=== PATIENT | male | born 1960 | race Caucasian/White ===

== ENCOUNTER 2018-04-05 18:44 | Observation (INO) | payer BC ==
[~2018-04-05] VITALS: Ht 182.9 cm; Wt 108.0 kg
[~2018-04-05 18:44] MED LIST: AMOX500 PO; ASCO1ER; ASCO1ER PO; ASPI325; ASPI325 PO; ASPI81EC; ATOR80; Advil200 M1 PO; CALGLU500; CARV25 PO; CARV6.25 PO; CEPH500 PO; CHOL10002 PO; CLOP75; CLOP75 PO; DILTIAZEM 24HR120 MG PO; ERGO400 PO; EZET10 PO; FAMO20 PO; FENO145 PO; FENO48; FENO54; FLUO20; FOLI1 PO; FOLI400; GINKO BILOBA; HYDACE10B PO; IRBE150; IRBE150 PO; ISOMON60ER; ISOMON60ER PO; Isosorbide Mono60 MG PO; LISI20 PO; LISI5 PO; LIVALO2 MG PO; LOVAZA; METF500 PO; METF500C PO; METO100ER; METO100ER PO; MULVIT; MULVITA PO; MULVITMIND PO; MULVITMINE PO; NIAC500ER PO; NITR.6SL PO; NITROMIST4.1 GM; Norco 10-325 T1 EACH; Norco 5-325 Ta1 EACH PO; OMEG1CAP30 PO; OMEP20ER; OMEP20ER PO; OXYACE5T PO; OXYACE7.5T; OXYACE7.5T PO; PANT40; PIOG15; PIOG15 PO; PRED20 PO; Pyridium200 MG PO; RANO500T PO; ROSU10TA PO; RXHYDMOR2 PO; SUCR1 PO; TOCO400; TRAM50 PO; TRESIBA FL200 UNIT/1 SC; UBID100; UBID100 PO; VALS80; ZEBUTAL 50-3251 EACH PO; ZONI100 PO
[2018-04-05] MEDS ORDERED: FURO20 PO (19:38)
[2018-04-05] MEDS ORDERED: AMLO10 PO (19:55)
[2018-04-05] MEDS ORDERED: UBID10 PO (19:56)
[2018-04-05 19:57] LABS: BASOPHILS ABSOLUTE AUTO 0.08 K/mm3 (0.00-0.23); BASOPHILS PERCENT AUTO 1 % (0-2); EOSINOPHILS ABSOLUTE AUTO 0.35 K/mm3 (0.00-0.68); EOSINOPHILS PERCENT AUTO 3 % (0-6); Hematocrit 41.4 % (37.0-53.0); Hemoglobin 14.4 g/dL (13.5-17.5); IMMATURE GRAN ABSOLUTE AUTO 0.08 K/mm3 (0.00-0.10); IMMATURE GRAN PERCENT AUTO 1 % (0-1); LYMPHOCYTES ABSOLUTE AUTO 4.75 K/mm3 (0.84-5.20); LYMPHOCYTES PERCENT AUTO 45 % (21-46); MONOCYTES ABSOLUTE AUTO 1.06 K/mm3 (0.16-1.47); MONOCYTES PERCENT AUTO 10 % (4-13); Mean Corpuscular HGB 28.2 pg (26.0-34.0); Mean Corpuscular HGB Conc 34.8 g/dL (31.5-36.5); Mean Corpuscular Volume 81 fL (80-100); Mean Platelet Volume 10.2 fL (9.1-12.4); NEUTROPHILS ABSOLUTE AUTO 4.33 K/mm3 (1.96-9.15); NEUTROPHILS PERCENT AUTO 41 % (41-73); Platelet Count 233 K/mm3 (150-400); RDW Coefficient Variation 12.5 % (11.7-14.2); RDW Standard Deviation 36.9 fL (35.1-46.3); White Blood Cell Count 10.65 K/mm3 (4.00-11.30)
[2018-04-05 20:09] LABS: Prothrombin Time Results 10.3 Sec (9.7-11.5)
[2018-04-05 20:20] LABS: Alanine Aminotransfer (ALT/SGP 54 U/L (12-78); Albumin, Blood 4.1 g/dL (3.4-5.0); Albumin/Globulin Ratio 1.1 (0.8-1.8); Alk Phos 48 U/L (50-136); Anion Gap 10 mmol/L (6-16); Aspartate Aminotrans (AST/SGOT 31 U/L (12-37); Bilirubin, Total 0.7 mg/dL (0.1-1.0); Blood Urea Nitrogen 23 mg/dL (8-24); Bun/Creatinine Ratio 19.7 (12.0-20.0); CO2, Blood 22 mmol/L (21-32); Calcium, Blood 9.3 mg/dL (8.5-10.1); Chloride, Blood 102 mmol/L (98-108); Creatinine, Blood 1.17 mg/dL (0.60-1.20); Globulin, Blood 3.8 g/dL (2.2-4.0); Glomerular Filtration Rate >60 (60-); Glucose, Blood 128 mg/dL (70-99); Potassium, Blood 4.2 mmol/L (3.5-5.5); Sodium, Blood 134 mmol/L (136-145); Total Protein, Blood 7.9 g/dL (6.4-8.2); Troponin I <0.015 ng/mL (0.000-0.040)
[2018-04-05 21:21] LABS: D-Dimer, Quantitative 0.4 mg/L FEU (0.00-0.52)
[2018-04-05] MEDS ORDERED: GABA400 PO (22:34)
[2018-04-05] MEDS ORDERED: RANO500T PO (22:35)
[2018-04-05 23:46] LABS: Source, Urine Clean Catch
[2018-04-05 23:52] LABS: Bilirubin, Urine Neg (Neg); Blood, Urine Neg (Neg); Glucose Qualitative, Urine Neg (Neg); Ketones, Urine Neg (Neg); Leukocyte Esterase, Urine Neg (Neg); Nitrite, Urine Neg (Neg); Protein, Urine Neg (Neg); Specific Gravity, Urine 1.015 (1.003-1.022); Urobilinogen, Urine NORM (Normal)
[2018-04-05 23:56] LABS: Appearance, Urine Clear (Clear); Color, Urine Yellow (P-Yellow)
[2018-04-06 04:59] LABS: CPK Creatine Kinase 339 U/L (39-308); Troponin I <0.015 ng/mL (0.000-0.040)
[2018-04-06 05:12] LABS: Creatine Kinase MB 6.5 ng/mL (0.0-3.6); Creatine Kinase MB Index 1.9 (0.0-4.0)
[2018-04-06 16:02] LABS: Hematocrit 41.1 % (37.0-53.0); Hemoglobin 14.2 g/dL (13.5-17.5); Mean Corpuscular HGB 28.1 pg (26.0-34.0); Mean Corpuscular HGB Conc 34.5 g/dL (31.5-36.5); Mean Corpuscular Volume 81 fL (80-100); Mean Platelet Volume 10.1 fL (9.1-12.4); Platelet Count 182 K/mm3 (150-400); RDW Coefficient Variation 12.5 % (11.7-14.2); RDW Standard Deviation 36.8 fL (35.1-46.3); Red Blood Cell Count 5.06 M/mm3 (4.30-5.90); White Blood Cell Count 7.74 K/mm3 (4.00-11.30)
[2018-04-06 16:25] LABS: Alanine Aminotransfer (ALT/SGP 49 U/L (12-78); Albumin, Blood 3.6 g/dL (3.4-5.0); Alk Phos 43 U/L (50-136); Anion Gap 9 mmol/L (6-16); Aspartate Aminotrans (AST/SGOT 30 U/L (12-37); Bilirubin, Total 0.5 mg/dL (0.1-1.0); Blood Urea Nitrogen 14 mg/dL (8-24); Bun/Creatinine Ratio 14.3 (12.0-20.0); CO2, Blood 26 mmol/L (21-32); Calcium, Blood 8.9 mg/dL (8.5-10.1); Chloride, Blood 101 mmol/L (98-108); Creatinine, Blood 0.98 mg/dL (0.60-1.20); Globulin, Blood 3.7 g/dL (2.2-4.0); Glomerular Filtration Rate >60 (60-); Glucose, Blood 138 mg/dL (70-99); Potassium, Blood 4.5 mmol/L (3.5-5.5); Sodium, Blood 136 mmol/L (136-145); Total Protein, Blood 7.3 g/dL (6.4-8.2)
== END 2018-04-07 14:55 | disposition home or self-care (01) ==
LOC: ER 18:44 → PCU 18:45
PROVIDERS: Emergency Medicine; Internal Medicine
DX: R07.9 Chest pain, unspecified (principal); R42 Dizziness and giddiness; I10 Essential (primary) hypertension; E78.5 Hyperlipidemia, unspecified; I25.10 Atherosclerotic heart disease of native coronary artery without angina pectoris; I25.5 Ischemic cardiomyopathy; E11.40 Type 2 diabetes mellitus with diabetic neuropathy, unspecified; Z79.4 Long term (current) use of insulin; Z79.899 Other long term (current) drug therapy; Z79.82 Long term (current) use of aspirin; Z95.1 Presence of aortocoronary bypass graft; Z79.02 Long term (current) use of antithrombotics/antiplatelets
CPT/HCPCS: 36415; 70450; 71046; 80053; 81003; 82550; 82553; 82947; 83880; 84484; 85025; 85027; 85347; 85379; 85610; 85730; 93005; 93010; 93459; 93571; 93880; 94762; 99152; 99153; 99285-25; C1760; C1769; G0378; J1200; J1644; J2250; J3010; J7030; Q9967

== ENCOUNTER 2018-10-28 20:34 | Emergency (ER) | payer BC ==
[~2018-10-28] VITALS: Ht 182.9 cm; Wt 111.1 kg
[~2018-10-28 20:34] MED LIST changes: +AMLO10 PO; +FURO20 PO; +GABA400 PO; +UBID10 PO
[2018-10-28] MEDS ORDERED: Percocet 5-3251 EACH PO (22:41)
[2018-10-28] MEDS ORDERED: Robaxin500 MG PO (22:41)
== END 2018-10-28 22:46 | disposition home or self-care (01) ==
LOC: ER 20:34
DX: M54.12 Radiculopathy, cervical region (principal); Z88.1 Allergy status to other antibiotic agents; Z88.8 Allergy status to other drugs, medicaments and biological substances; Z79.899 Other long term (current) drug therapy; Z79.4 Long term (current) use of insulin; Z79.82 Long term (current) use of aspirin; I10 Essential (primary) hypertension; E11.9 Type 2 diabetes mellitus without complications; E78.5 Hyperlipidemia, unspecified; Z87.891 Personal history of nicotine dependence
CPT/HCPCS: 96372; 99282-25; J1170; J1885

== ENCOUNTER → 2020-06-24 | Outpatient (CLI) | payer BC ==
[~2020-06-24] MED LIST changes: +ABAT250V; +AMOCLA875 PO; +Bactrim Ds Tab1 EACH PO; +JARDIANCE10 MG PO; +NITR.4SL SL; +Percocet 5-3251 EACH PO; +REPATHA SU140 MG/1 M SQ; +Robaxin500 MG PO
== END | disposition home or self-care (01) ==
LOC: LAB PR 10:18 → EDBD 10:18
DX: Z01.812 Encounter for preprocedural laboratory examination (principal); Z20.828 Contact with and (suspected) exposure to other viral communicable diseases
CPT/HCPCS: U0003

== ENCOUNTER 2020-06-29 06:58 | Day surgery (SDC) | payer BC ==
[~2020-06-29] VITALS: Ht 180.3 cm; Wt 107.0 kg
[~2020-06-29 06:58] MED LIST changes: -REPATHA SU140 MG/1 M SQ
[2020-06-29] MEDS ORDERED: REPATHA SU140 MG/1 M SQ (07:47)
--- NOTE | 2020-06-29 09:44 | NUR ---
PT BACK TO RECOVERY ROOM VIA BED POST PROCEDURE. DROWSY, BUT EASILY ROUSES TO VERBAL STIMULI. VSS. SPOUSE AT BEDSIDE, CALL LIGHT IN REACH. RIGHT GROIN SITE SOFT, NON-TENDER. TEGADERM IN PLACE WITHOUT BLEEDING OR OOZING AT SITE.
--- NOTE | 2020-06-29 09:51 | NUR ---
PT'S SPOUSE STATES PT TAKES NORCO 10/325 MG AT HOME REGULARLY FOR BACK PAIN AND WOULD LIKE PT TO HAVE A DOSE WHILE LAYING FLAT ON BACK. WHEN PT ASKED ABOUT BACK PAIN, STATES HE DOES HAVE BACK PAIN CURRENTLY, WOULD LIKE A NORCO. DR OLIVARES NOTIFIED, GAVE VERBAL ORDERS FOR NORCO X 1 NOW.
--- NOTE | 2020-06-29 10:44 | NUR ---
PT SLEEPING, RESP EVEN AND NON-LABORED. VSS, CALL LIGHT IN REACH. PT'S REMAINS AT BEDSIDE.
--- NOTE | 2020-06-29 11:33 | NUR ---
PT OUT TO CAR VIA WHEELCHAIR. IV HAS BEEN DC'D, CATH INTACT. PT AND SPOUSE VERBALIZED UNDERSTANDING OF DC INSTRUCTIONS AND FOLLOW UP INFORMATION. RIGHT FEMORAL SITE REMAINS CLEAN, DRY, AND INTACT. PT DENIES DISCOMFORT TO THE AREA.
--- NOTE | 2020-06-29 12:02 | NUR ---
DR OLIVARES AT BEDSIDE SPEAKING WITH PT AND SPOUSE ABOUT PROCEDURE.
--- NOTE | 2020-06-29 12:46 | NUR ---
PT SITTING UP IN BED, RIGHT GROIN SITE REMAINS SOFT AND NON-TENDER WITHOUT BLEEDING. VSS.
== END 2020-06-29 14:00 | disposition home or self-care (01) ==
LOC: MHTC 06:58 → EDBD 07:00 → MHTC 14:00
PROC: B201YZZ Plain Radiography of Multiple Coronary Arteries using Other Contrast (ICD-10-PCS; principal; 2020-06-29)
PROC: 4A023N7 Measurement of Cardiac Sampling and Pressure, Left Heart, Percutaneous Approach (ICD-10-PCS; principal; 2020-06-29)
DX: I25.118 Atherosclerotic heart disease of native coronary artery with other forms of angina pectoris (principal); T82.855A Stenosis of coronary artery stent, initial encounter; Y83.1 Surgical operation with implant of artificial internal device as the cause of abnormal reaction of the patient, or of later complication, without mention of misadventure at the time of the procedure; I25.82 Chronic total occlusion of coronary artery; Z88.8 Allergy status to other drugs, medicaments and biological substances; Z95.1 Presence of aortocoronary bypass graft; E11.9 Type 2 diabetes mellitus without complications; E78.5 Hyperlipidemia, unspecified; Z82.49 Family history of ischemic heart disease and other diseases of the circulatory system; E66.9 Obesity, unspecified; I25.2 Old myocardial infarction; Z79.899 Other long term (current) drug therapy; Z79.82 Long term (current) use of aspirin; Z79.02 Long term (current) use of antithrombotics/antiplatelets; Z79.4 Long term (current) use of insulin; Z87.891 Personal history of nicotine dependence; Z68.33 Body mass index [BMI] 33.0-33.9, adult
CPT/HCPCS: 76937; 85347; 93459; 99152; 99153; A9270-GY; C1760; C1769; C1874; C1887; C1894; C9604; J1644; J2250; J3010; J7030; J7050; Q9967

== ENCOUNTER 2021-01-19 18:18 | Inpatient (IN) | payer BC ==
[~2021-01-19] VITALS: Ht 182.9 cm; Wt 114.7 kg
[~2021-01-19 18:18] MED LIST changes: +REPATHA SU140 MG/1 M SQ
[2021-01-19 18:56] LABS: BASOPHILS ABSOLUTE AUTO 0.06 K/mm3 (0.00-0.23); BASOPHILS PERCENT AUTO 1 % (0-2); EOSINOPHILS ABSOLUTE AUTO 0.23 K/mm3 (0.00-0.68); EOSINOPHILS PERCENT AUTO 3 % (0-6); Hematocrit 38.7 % (37.0-53.0); Hemoglobin 12.9 g/dL (13.5-17.5); IMMATURE GRAN ABSOLUTE AUTO 0.04 K/mm3 (0.00-0.10); IMMATURE GRAN PERCENT AUTO 1 % (0-1); LYMPHOCYTES ABSOLUTE AUTO 2.46 K/mm3 (0.84-5.20); LYMPHOCYTES PERCENT AUTO 37 % (21-46); MONOCYTES ABSOLUTE AUTO 0.85 K/mm3 (0.16-1.47); MONOCYTES PERCENT AUTO 13 % (4-13); Mean Corpuscular HGB Conc 33.3 g/dL (31.5-36.5); Mean Corpuscular Volume 81 fL (80-100); Mean Platelet Volume 10.2 fL (9.1-12.4); NEUTROPHILS ABSOLUTE AUTO 3.04 K/mm3 (1.96-9.15); NEUTROPHILS PERCENT AUTO 46 % (41-73); Platelet Count 198 K/mm3 (150-400); RDW Coefficient Variation 13.4 % (11.7-14.2); RDW Standard Deviation 39.3 fL (35.1-46.3); Red Blood Cell Count 4.77 M/mm3 (4.30-5.90); White Blood Cell Count 6.68 K/mm3 (4.00-11.30)
[2021-01-19 19:16] LABS: Alanine Aminotransfer (ALT/SGP 53 U/L (12-78); Albumin, Blood 3.5 g/dL (3.4-5.0); Albumin/Globulin Ratio 0.9 (0.8-1.8); Alk Phos 52 U/L (50-136); Anion Gap 8 mmol/L (6-16); Aspartate Aminotrans (AST/SGOT 38 U/L (12-37); Bilirubin, Total 0.5 mg/dL (0.1-1.0); Blood Urea Nitrogen 18 mg/dL (8-24); Bun/Creatinine Ratio 21.2 (12.0-20.0); CO2, Blood 23 mmol/L (21-32); Calcium, Blood 9.1 mg/dL (8.5-10.1); Chloride, Blood 107 mmol/L (98-108); Creatinine, Blood 0.85 mg/dL (0.60-1.20); Globulin, Blood 3.8 g/dL (2.2-4.0); Glomerular Filtration Rate >60 (60-); Glucose, Blood 166 mg/dL (70-99); Sodium, Blood 138 mmol/L (136-145); Total Protein, Blood 7.3 g/dL (6.4-8.2); Troponin I <0.015 ng/mL (0.000-0.040)
[2021-01-19] MEDS ORDERED: ASPIR 8181 M1 PO (22:11)
[2021-01-19] MEDS ORDERED: AMLO5 PO (22:12)
[2021-01-19] MEDS ORDERED: HYDACE10B PO (22:15)
[2021-01-19] MEDS ORDERED: TRESIBA FL100 UNIT/2 SC (22:17)
[2021-01-19] MEDS ORDERED: GABA800 PO (22:18)
[2021-01-20 00:04] LABS: Mean Platelet Volume 10.1 fL (9.1-12.4); Platelet Count 187 K/mm3 (150-400)
[2021-01-20 00:20] LABS: International Normalized Ratio 0.98; Prothrombin Time Results 10.6 Sec (9.7-11.5)
[2021-01-20 03:27] LABS: BASOPHILS ABSOLUTE AUTO 0.05 K/mm3 (0.00-0.23); BASOPHILS PERCENT AUTO 1 % (0-2); EOSINOPHILS ABSOLUTE AUTO 0.26 K/mm3 (0.00-0.68); EOSINOPHILS PERCENT AUTO 4 % (0-6); Hematocrit 37.8 % (37.0-53.0); Hemoglobin 12.7 g/dL (13.5-17.5); IMMATURE GRAN ABSOLUTE AUTO 0.04 K/mm3 (0.00-0.10); IMMATURE GRAN PERCENT AUTO 1 % (0-1); LYMPHOCYTES ABSOLUTE AUTO 2.87 K/mm3 (0.84-5.20); LYMPHOCYTES PERCENT AUTO 41 % (21-46); MONOCYTES ABSOLUTE AUTO 0.94 K/mm3 (0.16-1.47); MONOCYTES PERCENT AUTO 14 % (4-13); Mean Corpuscular HGB 26.8 pg (26.0-34.0); Mean Corpuscular HGB Conc 33.6 g/dL (31.5-36.5); Mean Corpuscular Volume 80 fL (80-100); Mean Platelet Volume 10.1 fL (9.1-12.4); NEUTROPHILS PERCENT AUTO 40 % (41-73); Platelet Count 190 K/mm3 (150-400); RDW Coefficient Variation 13.3 % (11.7-14.2); RDW Standard Deviation 38.2 fL (35.1-46.3); Red Blood Cell Count 4.73 M/mm3 (4.30-5.90); White Blood Cell Count 6.96 K/mm3 (4.00-11.30)
[2021-01-20 03:53] LABS: Alanine Aminotransfer (ALT/SGP 58 U/L (12-78); Albumin, Blood 3.4 g/dL (3.4-5.0); Alk Phos 41 U/L (50-136); Anion Gap 5 mmol/L (6-16); Aspartate Aminotrans (AST/SGOT 47 U/L (12-37); Bilirubin, Total 0.6 mg/dL (0.1-1.0); Blood Urea Nitrogen 14 mg/dL (8-24); Bun/Creatinine Ratio 20.1 (12.0-20.0); CO2, Blood 26 mmol/L (21-32); CPK Creatine Kinase 475 U/L (39-308); Calcium, Blood 8.7 mg/dL (8.5-10.1); Chloride, Blood 105 mmol/L (98-108); Globulin, Blood 3.5 g/dL (2.2-4.0); Glomerular Filtration Rate >60 (60-); Glucose, Blood 127 mg/dL (70-99); Potassium, Blood 3.9 mmol/L (3.5-5.5); Sodium, Blood 136 mmol/L (136-145); Total Protein, Blood 6.9 g/dL (6.4-8.2); Troponin I <0.015 ng/mL (0.000-0.040)
[2021-01-20 04:05] LABS: Creatine Kinase MB 12.2 ng/mL (0.0-3.6); Creatine Kinase MB Index 2.6 (0.0-4.0)
[2021-01-20 10:54] LABS: SARS-Cov-2 (COVID-19) PCR, MMC NEGATIVE (NEGATIVE)
--- NOTE | 2021-01-20 11:05 | NUR ---
echocardiogram complete
--- NOTE | 2021-01-20 11:23 | NUR ---
PT TO HC PT TO HC WITH RN'S BY BED. CHART WITH PT.
[2021-01-20 11:45] LABS: CPK Creatine Kinase 376 U/L (39-308); Troponin I <0.015 ng/mL (0.000-0.040)
[2021-01-20 11:59] LABS: Creatine Kinase MB 9.4 ng/mL (0.0-3.6); Creatine Kinase MB Index 2.5 (0.0-4.0)
--- NOTE | 2021-01-20 12:01 | NUR ---
Advance Directive (AD) education cunducted. Patient tells me that he has put off the AD discussion for quite some time but states that his insisted that he get the form and they will go over it when she arrives. I hand patient the AD booklet and explain about the sections in the booklet and about the notary requirements and filing process. Patient voices appreciation for the form. I explain that the staff are available to answer any questions once his arrrives.
--- NOTE | 2021-01-20 17:54 | NUR ---
SHIFT SUMMARY PT ALERT AND ORIENTED X 4. HR STABLE. BP STABLE. PT REPORTS CP THIS AM. MEDICATED PER EMAR. PT TO FOR ANGIO THIS AM, VS STABLE UPON RETURN TO UNIT. NO CP OR PRESSURE REPORTED AFTER PROCEDURE. R FEMORAL SITE WNL. DRESSING C/D/I. PT LIED FLAT FOR 3 HRS POST OP. HOB RAISED 15 DEGREES Q 15 MIN AFTER 3 HR ANJEL. PT TOLERATED WELL. PT REPORTS PAIN IN ABD AND BACK. REPORTS THIS PAIN IS CHRONIC. MEDICATED PER EMAR. PT REPORTS RELIEF. OXYGEN SATURATION MAINTAINED ABOVE 92% ON RA.PT ABLE TO TURN SELF IN BED NEEDED. WILL CONTINUE TO MONITOR UNTIL REPORT GIVEN TO NIGHTSHIFT RN.
--- NOTE | 2021-01-20 20:21 | NUR ---
PATIENT ALERT AND ORIENTATED, AT BEDSIDE, THIS LN TOOK OVER CARE AT 1845, PATIENT R/GROIN SITE DRESSING INTACT NO DRAINAGE NOTED AND HEME STABLE. ALBE TO MAKE NEEDS KNOWN, CALL LIGHT WITHIN REACH AND CALLS APPROPRIATELY.
--- NOTE | 2021-01-20 21:26 | NUR ---
PATIENT C/O R FLANK PAIN 6/10 RADIATING AROUND HIS MID BACK. GAVE 5/325 MG NORCO PO AND ONE HOUR LATER PAIN WAS DOWN TO 4/10 STILL SANDY NOTED, ASKED PATIENT IF HE WOULD LIKE FENTANYL 25 MCG IVP PRN, GAVE MEDICATION AND PAIN IS DOWN TO 1/10, PATIENT IS RESTING IN BED COMFORTABLY. ASKED PATIENT HOW HE MANAGES HIS PAIN AT HOME, PATIENT STATED THAT HE MANAGES IT TAKING 10/325 MG NORCO AT TIMES WHEN THE PAIN IS BAD.
--- NOTE | 2021-01-21 01:31 | NUR ---
PATIENT IS ALERT AND ORIENTATED ABLE TO MAKE NEEDS KNOWN THIS LN TOOK OVER CARE AT 1845 ON 01/20/21, PATIENT HAS CALL LIGHT WITHIN REACH CALL APPROPRIATELY AND IS INDEPENDENT WITH BATHROOM PRIVILAGES WITH GOALS OF DISCHARGING IN THE MORNING.
--- NOTE | 2021-01-21 11:32 | NUR ---
UPDATE CARDIOLOGY SIGNED OFF ON PT CASE. RECOMMENDING FOLLOW UP OUTPATIENT. HOSPITALIST INFORMED.
--- NOTE | 2021-01-21 17:31 | NUR ---
SHIFT SUMMARY SPOKE WITH CARDIOLOGY THIS AM. CARDIOLOGY SIGNING OFF AND RECOMMENDING OUTPATIENT FOLLOW UP. PT ALERT AND ORIENTED X 4. REPORTS CP AT TIMES. MEDICATED PER EMAR. PT REPORTS RELIEF. PT REPORTS EXERTIONAL CP, PHYSICIAN AWARE. R GROIN SITE WNL. DRESSING C/D/I. HR STABLE. BP STABLE. PT ABLE TO TURN SELF IN BED NEEDED. WILL CONTINUE TO MONITOR UNTIL REPORT GIVEN TO NIGHTSHIFT RN.
--- NOTE | 2021-01-22 05:44 | NUR ---
A/O X4. PLEASANT COOPERATIVE. VSS. C/O ONGOING C/P THAT IS "MORE RELIEVED WITH IV PAIN MEDICATION". TEACHING PROVIDED REGARDING PAIN CONTROL WHEN DISCHARGED HOME. NO OTHER COMPLAINTS OR NEEDS AT THIS TIME. CALL LIGHT WITHIN REACH.
--- NOTE | 2021-01-22 18:20 | NUR ---
SHIFT SUMMARY PT ALERT AND ORIENTED X 4. HR STABLE. BP STABLE. PT REPORTS CP AT TIMES. MEDICATED PER EMAR. PHYSICIAN NOTIFIED. PT REPORTS EXERTIONAL CP RATING 04/04. R GROIN SITE WNL. DRESSING C/D/I. PT SBA, ABLE TO TURN SELF IN BED. OXYGEN SATURATION MAINTAINED ABOVE 92% ON RA. WILL CONTINUE TO MONITOR UNTIL REPORT GIVEN TO NIGHTSHIFT RN.
--- NOTE | 2021-01-23 06:23 | NUR ---
chest pain increased w/ exertion continues for pt. denies new or different pain. IV Fentanyl and PO [place] given t/o noc. vss. up independently in room. denies other needs/concerns/questions. call light within reach.
--- NOTE | 2021-01-23 08:44 | NUR ---
AM NOTE PT ALERT AND ORIENTED X 4. VITAL SIGNS STABLE. DR SANTOS AT BEDSIDE THIS AM AND PT REPORTED DESIRE FOR DISCHARGE. PATIENT IS ABLE TO AMBULATE ON OWN. PT REPORTED CHEST PAIN AT REST 3/10. PT REPORTED PAIN FEELS LIKE PRESSURE/SHARP RADIATING DOWN ARM AT TIMES. THIS STUDENT WILL CONTINUE TO MONITOR PAIN AND TREAT PER ORDERS. BED IN LOW/LOCK, CALL LIGHT IN REACH.
--- NOTE | 2021-01-23 14:55 | NUR ---
SHIFT SUMMARY/DISCHARGE TRANSFER NOTE PT REMAINED A&O X 4. VITAL SIGNS STABLE. NO ACUTE CHANGES NOTED. PT LEFT PCU ROOM W/ BELONGINGS AT 1333 VIA WHEELCHAIR AND WAS PICKED UP BY . PATIENT APPEARED STEADY OF FEET AND WAS ABLE TO ENTER VEHICLE ON OWN.
--- NOTE | 2021-01-23 17:52 | NUR ---
THIS RN HAS REVIEWED THE NURSING STUDENTS DOCUMENTATION AND AM IN AGREEMENT. PT REPORTS 6/10 CHEST PAIN THIS AM, MEDICATED WITH FENTNYL IV WITH POSITIVE RESULTS. PT DECIDED HE WANTS TO GO HOME TODAY AND COMPLETED THE STRESS TEST AN OUTPATIENT. VSS. EDUCATED PT ON DISCHARGE SUMMARY, MEDCIATIONS, FOLLOW UP APPOINTMENTS AND GROIN SITE CARE. PT LEFT ROOM VIA WHEELCHAIR AT 1340.
== END 2021-01-23 13:40 | disposition home or self-care (01) | DRG 287 ==
LOC: ER 18:18 → PCU 23:20
PROVIDERS: Internal Medicine Cardiovascular Disease; Physician Assistant; ADMIT Internal Medicine
PROC: B2111ZZ Fluoroscopy of Multiple Coronary Arteries using Low Osmolar Contrast (ICD-10-PCS; principal; 2021-01-20)
PROC: B2181ZZ Fluoroscopy of Left Internal Mammary Bypass Graft using Low Osmolar Contrast (ICD-10-PCS; 2021-01-20)
DX: I25.110 Atherosclerotic heart disease of native coronary artery with unstable angina pectoris (principal); Z20.822 Contact with and (suspected) exposure to COVID-19; I10 Essential (primary) hypertension; E11.40 Type 2 diabetes mellitus with diabetic neuropathy, unspecified; K21.9 Gastro-esophageal reflux disease without esophagitis; E78.5 Hyperlipidemia, unspecified; Z86.718 Personal history of other venous thrombosis and embolism; Z95.1 Presence of aortocoronary bypass graft; Z88.8 Allergy status to other drugs, medicaments and biological substances; Z79.4 Long term (current) use of insulin; Z79.01 Long term (current) use of anticoagulants; Z79.82 Long term (current) use of aspirin; Z79.899 Other long term (current) drug therapy
CPT/HCPCS: 36415; 71046; 76937; 80053; 82550; 82553; 82947; 83880; 84484; 85025; 85049; 85610; 85730; 93005; 93010; 93306; 93455; 96372; 96374; 96375; 99152; 99153; 99285-25; A9270; C1760; C1769; C1894; G0378; J1644; J2250; J2270; J3010; J7030; Q9967; U0004

== ENCOUNTER 2021-04-17 02:25 | Day surgery (SDC) | payer OTHER ==
[~2021-04-17 02:25] MED LIST changes: +AMLO5 PO; +ASPIR 8181 M1 PO; +GABA800 PO; +TRESIBA FL100 UNIT/2 SC
== END 2021-04-17 23:41 | disposition home or self-care (01) ==
LOC: WOUND 02:25
DX: T81.31XA Disruption of external operation (surgical) wound, not elsewhere classified, initial encounter (principal); S31.000A Unspecified open wound of lower back and pelvis without penetration into retroperitoneum, initial encounter; I25.10 Atherosclerotic heart disease of native coronary artery without angina pectoris; M48.062 Spinal stenosis, lumbar region with neurogenic claudication; M51.16 Intervertebral disc disorders with radiculopathy, lumbar region; E11.622 Type 2 diabetes mellitus with other skin ulcer; Y83.8 Other surgical procedures as the cause of abnormal reaction of the patient, or of later complication, without mention of misadventure at the time of the procedure; Z87.891 Personal history of nicotine dependence; Z88.8 Allergy status to other drugs, medicaments and biological substances; Z79.4 Long term (current) use of insulin; Z98.890 Other specified postprocedural states
CPT/HCPCS: A9270; G0463

== ENCOUNTER 2021-04-24 02:52 | Day surgery (SDC) | payer OTHER | END 2021-04-24 23:09 | disposition home or self-care (01) | LOC: WOUND 02:52 | DX: T81.31XA Disruption of external operation (surgical) wound, not elsewhere classified, initial encounter (principal); S31.000A Unspecified open wound of lower back and pelvis without penetration into retroperitoneum, initial encounter; M48.062 Spinal stenosis, lumbar region with neurogenic claudication; M51.16 Intervertebral disc disorders with radiculopathy, lumbar region; E11.622 Type 2 diabetes mellitus with other skin ulcer; I25.10 Atherosclerotic heart disease of native coronary artery without angina pectoris; Y83.8 Other surgical procedures as the cause of abnormal reaction of the patient, or of later complication, without mention of misadventure at the time of the procedure; Z79.4 Long term (current) use of insulin | CPT/HCPCS: A9270; G0463 ==

== ENCOUNTER 2021-05-02 02:37 | Day surgery (SDC) | payer OTHER | END 2021-05-02 22:59 | disposition home or self-care (01) | LOC: WOUND 02:37 | DX: T81.31XA Disruption of external operation (surgical) wound, not elsewhere classified, initial encounter (principal); Y83.8 Other surgical procedures as the cause of abnormal reaction of the patient, or of later complication, without mention of misadventure at the time of the procedure; M48.062 Spinal stenosis, lumbar region with neurogenic claudication; M51.16 Intervertebral disc disorders with radiculopathy, lumbar region; E11.622 Type 2 diabetes mellitus with other skin ulcer; I25.10 Atherosclerotic heart disease of native coronary artery without angina pectoris; Z88.8 Allergy status to other drugs, medicaments and biological substances | CPT/HCPCS: A9270 ==

== ENCOUNTER 2021-05-09 01:49 | Day surgery (SDC) | payer OTHER | END 2021-05-09 22:44 | disposition home or self-care (01) | LOC: WOUND 01:49 | DX: T81.31XA Disruption of external operation (surgical) wound, not elsewhere classified, initial encounter (principal); M51.16 Intervertebral disc disorders with radiculopathy, lumbar region; I25.10 Atherosclerotic heart disease of native coronary artery without angina pectoris; E11.622 Type 2 diabetes mellitus with other skin ulcer; Z79.4 Long term (current) use of insulin; Y83.8 Other surgical procedures as the cause of abnormal reaction of the patient, or of later complication, without mention of misadventure at the time of the procedure | CPT/HCPCS: A9270; G0463 ==

== ENCOUNTER 2021-05-16 03:50 | Day surgery (SDC) | payer OTHER | END 2021-05-16 23:43 | disposition home or self-care (01) | LOC: WOUND 03:50 | DX: T81.31XA Disruption of external operation (surgical) wound, not elsewhere classified, initial encounter (principal); S31.000A Unspecified open wound of lower back and pelvis without penetration into retroperitoneum, initial encounter; X58.XXXA Exposure to other specified factors, initial encounter; M48.062 Spinal stenosis, lumbar region with neurogenic claudication; M51.16 Intervertebral disc disorders with radiculopathy, lumbar region; E11.622 Type 2 diabetes mellitus with other skin ulcer | CPT/HCPCS: A9270; G0463 ==

== ENCOUNTER 2021-05-23 02:44 | Day surgery (SDC) | payer OTHER | END 2021-05-23 22:42 | disposition home or self-care (01) | LOC: WOUND 02:44 | DX: S31.000A Unspecified open wound of lower back and pelvis without penetration into retroperitoneum, initial encounter (principal); X58.XXXA Exposure to other specified factors, initial encounter; M48.062 Spinal stenosis, lumbar region with neurogenic claudication; M51.16 Intervertebral disc disorders with radiculopathy, lumbar region; E11.622 Type 2 diabetes mellitus with other skin ulcer | CPT/HCPCS: A9270; G0463 ==

== ENCOUNTER 2021-05-30 00:29 | Day surgery (SDC) | payer OTHER | END 2021-05-30 23:25 | disposition home or self-care (01) | LOC: WOUND 00:29 | DX: T81.31XA Disruption of external operation (surgical) wound, not elsewhere classified, initial encounter (principal); M48.062 Spinal stenosis, lumbar region with neurogenic claudication; M51.16 Intervertebral disc disorders with radiculopathy, lumbar region; S31.000A Unspecified open wound of lower back and pelvis without penetration into retroperitoneum, initial encounter; X58.XXXA Exposure to other specified factors, initial encounter; E11.622 Type 2 diabetes mellitus with other skin ulcer; I25.10 Atherosclerotic heart disease of native coronary artery without angina pectoris; Z88.8 Allergy status to other drugs, medicaments and biological substances | CPT/HCPCS: A9270; G0463 ==

== ENCOUNTER 2021-05-31 02:12 | Day surgery (SDC) | payer OTHER | END 2021-05-31 23:04 | disposition home or self-care (01) | LOC: WOUND 02:12 | DX: S31.000D Unspecified open wound of lower back and pelvis without penetration into retroperitoneum, subsequent encounter (principal); X58.XXXD Exposure to other specified factors, subsequent encounter; M48.062 Spinal stenosis, lumbar region with neurogenic claudication; M51.16 Intervertebral disc disorders with radiculopathy, lumbar region; E11.622 Type 2 diabetes mellitus with other skin ulcer | CPT/HCPCS: G0463 ==

== ENCOUNTER 2021-06-02 01:28 | Day surgery (SDC) | payer OTHER | END 2021-06-02 23:45 | disposition home or self-care (01) | LOC: WOUND 01:28 | DX: S31.000A Unspecified open wound of lower back and pelvis without penetration into retroperitoneum, initial encounter (principal); X58.XXXA Exposure to other specified factors, initial encounter; E11.622 Type 2 diabetes mellitus with other skin ulcer; M48.062 Spinal stenosis, lumbar region with neurogenic claudication; M51.16 Intervertebral disc disorders with radiculopathy, lumbar region | CPT/HCPCS: G0463 ==

== ENCOUNTER 2021-06-05 02:53 | Day surgery (SDC) | payer OTHER | END 2021-06-05 22:54 | disposition home or self-care (01) | LOC: WOUND 02:53 | DX: T81.31XA Disruption of external operation (surgical) wound, not elsewhere classified, initial encounter (principal); M48.062 Spinal stenosis, lumbar region with neurogenic claudication; M51.16 Intervertebral disc disorders with radiculopathy, lumbar region; S31.000A Unspecified open wound of lower back and pelvis without penetration into retroperitoneum, initial encounter; X58.XXXA Exposure to other specified factors, initial encounter; E11.622 Type 2 diabetes mellitus with other skin ulcer | CPT/HCPCS: A9270; G0463 ==

== ENCOUNTER 2021-06-07 05:14 | Day surgery (SDC) | payer OTHER | END 2021-06-07 22:47 | disposition home or self-care (01) | LOC: WOUND 05:14 | DX: S31.000A Unspecified open wound of lower back and pelvis without penetration into retroperitoneum, initial encounter (principal); X58.XXXA Exposure to other specified factors, initial encounter; M48.062 Spinal stenosis, lumbar region with neurogenic claudication; M51.16 Intervertebral disc disorders with radiculopathy, lumbar region; E11.622 Type 2 diabetes mellitus with other skin ulcer | CPT/HCPCS: G0463 ==

== ENCOUNTER 2021-06-09 04:13 | Day surgery (SDC) | payer OTHER | END 2021-06-09 23:39 | disposition home or self-care (01) | LOC: WOUND 04:13 | DX: S31.000A Unspecified open wound of lower back and pelvis without penetration into retroperitoneum, initial encounter (principal); X58.XXXA Exposure to other specified factors, initial encounter; E11.622 Type 2 diabetes mellitus with other skin ulcer; M48.062 Spinal stenosis, lumbar region with neurogenic claudication; M51.16 Intervertebral disc disorders with radiculopathy, lumbar region | CPT/HCPCS: G0463 ==

== ENCOUNTER 2021-06-12 03:48 | Day surgery (SDC) | payer OTHER | END 2021-06-12 12:00 | disposition home or self-care (01) | LOC: WOUND 03:48 | DX: T81.31XA Disruption of external operation (surgical) wound, not elsewhere classified, initial encounter (principal); S31.000A Unspecified open wound of lower back and pelvis without penetration into retroperitoneum, initial encounter; X58.XXXA Exposure to other specified factors, initial encounter; M48.062 Spinal stenosis, lumbar region with neurogenic claudication; M51.16 Intervertebral disc disorders with radiculopathy, lumbar region; E11.622 Type 2 diabetes mellitus with other skin ulcer | CPT/HCPCS: A9270; G0463 ==

== ENCOUNTER 2021-06-14 04:33 | Day surgery (SDC) | payer OTHER | END 2021-06-14 23:30 | disposition home or self-care (01) | LOC: WOUND 04:33 | DX: S31.000A Unspecified open wound of lower back and pelvis without penetration into retroperitoneum, initial encounter (principal); X58.XXXA Exposure to other specified factors, initial encounter; M51.16 Intervertebral disc disorders with radiculopathy, lumbar region; M48.062 Spinal stenosis, lumbar region with neurogenic claudication; E11.622 Type 2 diabetes mellitus with other skin ulcer | CPT/HCPCS: G0463 ==

== ENCOUNTER 2021-06-16 03:10 | Day surgery (SDC) | payer OTHER | END 2021-06-16 22:53 | disposition home or self-care (01) | LOC: WOUND 03:10 | DX: S31.000A Unspecified open wound of lower back and pelvis without penetration into retroperitoneum, initial encounter (principal); X58.XXXA Exposure to other specified factors, initial encounter; M48.062 Spinal stenosis, lumbar region with neurogenic claudication; M51.16 Intervertebral disc disorders with radiculopathy, lumbar region; E11.622 Type 2 diabetes mellitus with other skin ulcer | CPT/HCPCS: G0463 ==

== ENCOUNTER 2021-06-19 05:38 | Day surgery (SDC) | payer OTHER | END 2021-06-19 22:50 | disposition home or self-care (01) | LOC: WOUND 05:38 | DX: T81.30XA Disruption of wound, unspecified, initial encounter (principal); S31.000A Unspecified open wound of lower back and pelvis without penetration into retroperitoneum, initial encounter; X58.XXXA Exposure to other specified factors, initial encounter; M48.062 Spinal stenosis, lumbar region with neurogenic claudication; M51.16 Intervertebral disc disorders with radiculopathy, lumbar region; E11.622 Type 2 diabetes mellitus with other skin ulcer | CPT/HCPCS: A9270; G0463 ==

== ENCOUNTER 2021-06-23 05:21 | Day surgery (SDC) | payer OTHER | END 2021-06-23 23:35 | disposition home or self-care (01) | LOC: WOUND 05:21 | DX: S31.000A Unspecified open wound of lower back and pelvis without penetration into retroperitoneum, initial encounter (principal); X58.XXXA Exposure to other specified factors, initial encounter; E11.622 Type 2 diabetes mellitus with other skin ulcer; M48.062 Spinal stenosis, lumbar region with neurogenic claudication; M51.16 Intervertebral disc disorders with radiculopathy, lumbar region | CPT/HCPCS: G0463 ==

== ENCOUNTER 2021-06-26 05:49 | Day surgery (SDC) | payer OTHER | END 2021-06-26 23:12 | disposition home or self-care (01) | LOC: WOUND 05:49 | DX: T81.31XA Disruption of external operation (surgical) wound, not elsewhere classified, initial encounter (principal); M48.062 Spinal stenosis, lumbar region with neurogenic claudication; M51.16 Intervertebral disc disorders with radiculopathy, lumbar region; S31.000A Unspecified open wound of lower back and pelvis without penetration into retroperitoneum, initial encounter; X58.XXXA Exposure to other specified factors, initial encounter; E11.622 Type 2 diabetes mellitus with other skin ulcer; I25.10 Atherosclerotic heart disease of native coronary artery without angina pectoris | CPT/HCPCS: A9270 ==

== ENCOUNTER 2021-06-28 02:23 | Day surgery (SDC) | payer OTHER | END 2021-06-28 12:00 | disposition home or self-care (01) | LOC: WOUND 02:23 | DX: S31.000A Unspecified open wound of lower back and pelvis without penetration into retroperitoneum, initial encounter (principal); X58.XXXA Exposure to other specified factors, initial encounter; E11.622 Type 2 diabetes mellitus with other skin ulcer; M48.062 Spinal stenosis, lumbar region with neurogenic claudication; M54.16 Radiculopathy, lumbar region ==

== ENCOUNTER 2021-07-03 05:27 | Day surgery (SDC) | payer OTHER | END 2021-07-03 23:53 | disposition home or self-care (01) | LOC: WOUND 05:27 | DX: S31.000A Unspecified open wound of lower back and pelvis without penetration into retroperitoneum, initial encounter (principal); X58.XXXA Exposure to other specified factors, initial encounter; E11.622 Type 2 diabetes mellitus with other skin ulcer; M48.062 Spinal stenosis, lumbar region with neurogenic claudication; M51.16 Intervertebral disc disorders with radiculopathy, lumbar region | CPT/HCPCS: G0463 ==

== ENCOUNTER 2021-07-05 04:43 | Day surgery (SDC) | payer OTHER | END 2021-07-05 22:59 | disposition home or self-care (01) | LOC: WOUND 04:43 | DX: S31.000A Unspecified open wound of lower back and pelvis without penetration into retroperitoneum, initial encounter (principal); X58.XXXA Exposure to other specified factors, initial encounter; M48.062 Spinal stenosis, lumbar region with neurogenic claudication; M51.16 Intervertebral disc disorders with radiculopathy, lumbar region; E11.622 Type 2 diabetes mellitus with other skin ulcer | CPT/HCPCS: G0463 ==

== ENCOUNTER 2021-07-07 08:00 | Day surgery (SDC) | payer OTHER | END 2021-07-07 23:59 | disposition home or self-care (01) | LOC: WOUND 08:00 | DX: S31.000A Unspecified open wound of lower back and pelvis without penetration into retroperitoneum, initial encounter (principal); X58.XXXA Exposure to other specified factors, initial encounter; M48.062 Spinal stenosis, lumbar region with neurogenic claudication; M51.16 Intervertebral disc disorders with radiculopathy, lumbar region; E11.622 Type 2 diabetes mellitus with other skin ulcer | CPT/HCPCS: G0463 ==

== ENCOUNTER 2021-07-10 08:00 | Day surgery (SDC) | payer OTHER | END 2021-07-10 23:59 | disposition home or self-care (01) | LOC: WOUND 08:00 | DX: S31.000A Unspecified open wound of lower back and pelvis without penetration into retroperitoneum, initial encounter (principal); X58.XXXA Exposure to other specified factors, initial encounter; M48.062 Spinal stenosis, lumbar region with neurogenic claudication; M51.16 Intervertebral disc disorders with radiculopathy, lumbar region; E11.622 Type 2 diabetes mellitus with other skin ulcer | CPT/HCPCS: G0463 ==

== ENCOUNTER 2021-08-02 00:18 | Day surgery (SDC) | payer OTHER | END 2021-08-02 23:15 | disposition home or self-care (01) | LOC: WOUND 00:18 | DX: T81.31XA Disruption of external operation (surgical) wound, not elsewhere classified, initial encounter (principal); M48.062 Spinal stenosis, lumbar region with neurogenic claudication; M51.16 Intervertebral disc disorders with radiculopathy, lumbar region; S31.000A Unspecified open wound of lower back and pelvis without penetration into retroperitoneum, initial encounter; X58.XXXA Exposure to other specified factors, initial encounter; E11.622 Type 2 diabetes mellitus with other skin ulcer | CPT/HCPCS: G0463 ==

== ENCOUNTER 2021-12-05 15:21 | Emergency (ER) | payer OTHER ==
[~2021-12-05] VITALS: Ht 182.9 cm; Wt 108.9 kg
[2021-12-05 15:48] LABS: BASOPHILS ABSOLUTE AUTO 0.09 K/mm3 (0.00-0.23); BASOPHILS PERCENT AUTO 1 % (0-2); EOSINOPHILS ABSOLUTE AUTO 0.25 K/mm3 (0.00-0.68); EOSINOPHILS PERCENT AUTO 2 % (0-6); Hematocrit 45.9 % (37.0-53.0); Hemoglobin 15.5 g/dL (13.5-17.5); IMMATURE GRAN ABSOLUTE AUTO 0.07 K/mm3 (0.00-0.10); IMMATURE GRAN PERCENT AUTO 1 % (0-1); LYMPHOCYTES ABSOLUTE AUTO 3.65 K/mm3 (0.84-5.20); LYMPHOCYTES PERCENT AUTO 35 % (21-46); MONOCYTES ABSOLUTE AUTO 1.02 K/mm3 (0.16-1.47); MONOCYTES PERCENT AUTO 10 % (4-13); Mean Corpuscular HGB 28.4 pg (26.0-34.0); Mean Corpuscular HGB Conc 33.8 g/dL (31.5-36.5); Mean Corpuscular Volume 84 fL (80-100); NEUTROPHILS ABSOLUTE AUTO 5.24 K/mm3 (1.96-9.15); NEUTROPHILS PERCENT AUTO 51 % (41-73); Platelet Count 291 K/mm3 (150-400); RDW Coefficient Variation 13.3 % (11.7-14.2); RDW Standard Deviation 40.5 fL (35.1-46.3); Red Blood Cell Count 5.45 M/mm3 (4.30-5.90); White Blood Cell Count 10.32 K/mm3 (4.00-11.30)
[2021-12-05 16:07] LABS: Alanine Aminotransfer (ALT/SGP 46 U/L (12-78); Albumin, Blood 4.1 g/dL (3.4-5.0); Albumin/Globulin Ratio 1.1 (0.8-1.8); Alk Phos 64 U/L (50-136); Anion Gap 6 mmol/L (6-16); Aspartate Aminotrans (AST/SGOT 25 U/L (12-37); Bilirubin, Total 0.4 mg/dL (0.1-1.0); Blood Urea Nitrogen 19 mg/dL (8-24); Bun/Creatinine Ratio 17.8 (12.0-20.0); CO2, Blood 27 mmol/L (21-32); Calcium, Blood 9.3 mg/dL (8.5-10.1); Chloride, Blood 106 mmol/L (98-108); Creatinine, Blood 1.07 mg/dL (0.60-1.20); Globulin, Blood 3.7 g/dL (2.2-4.0); Glomerular Filtration Rate >60 (60-); Glucose, Blood 154 mg/dL (70-99); Sodium, Blood 139 mmol/L (136-145); Total Protein, Blood 7.8 g/dL (6.4-8.2)
[2021-12-05 20:13] LABS: Source, Urine Clean Catch
[2021-12-05 20:18] LABS: Appearance, Urine Clear (Clear); Bilirubin, Urine Neg (Neg); Blood, Urine Neg (Neg); Color, Urine Yellow (P-Yellow); Glucose Qualitative, Urine 4+ (Neg); Ketones, Urine Neg (Neg); Leukocyte Esterase, Urine Neg (Neg); Nitrite, Urine Neg (Neg); Protein, Urine Neg (Neg); Specific Gravity, Urine 1.015 (1.003-1.022); Urobilinogen, Urine NORM (Normal)
== END 2021-12-06 22:05 | disposition home or self-care (01) ==
LOC: ER 15:21
PROVIDERS: Physician Assistant
DX: R10.31 Right lower quadrant pain (principal); R30.0 Dysuria; I10 Essential (primary) hypertension; E11.9 Type 2 diabetes mellitus without complications; I25.10 Atherosclerotic heart disease of native coronary artery without angina pectoris; E78.5 Hyperlipidemia, unspecified; Z88.8 Allergy status to other drugs, medicaments and biological substances; Z79.4 Long term (current) use of insulin; Z79.82 Long term (current) use of aspirin; Z79.899 Other long term (current) drug therapy; Z79.84 Long term (current) use of oral hypoglycemic drugs
CPT/HCPCS: 36415; 74177; 80053; 81003; 83690; 85025; 96374; 99284-25; A9270; J1885; Q9967

== ENCOUNTER 2022-06-29 05:25 | Emergency (ER) | payer OTHER ==
[~2022-06-29] VITALS: Ht 182.9 cm; Wt 110.2 kg
[2022-06-29] MEDS ORDERED: LEVFLO500 PO (08:06)
== END 2022-06-29 08:45 | disposition home or self-care (01) ==
LOC: ER 05:25
DX: N45.1 Epididymitis (principal); I25.10 Atherosclerotic heart disease of native coronary artery without angina pectoris; I10 Essential (primary) hypertension; E11.40 Type 2 diabetes mellitus with diabetic neuropathy, unspecified; E78.5 Hyperlipidemia, unspecified; K21.9 Gastro-esophageal reflux disease without esophagitis; Z91.048 Other nonmedicinal substance allergy status; Z88.1 Allergy status to other antibiotic agents; Z79.899 Other long term (current) drug therapy; Z79.4 Long term (current) use of insulin; Z79.82 Long term (current) use of aspirin; Z79.02 Long term (current) use of antithrombotics/antiplatelets; Z79.84 Long term (current) use of oral hypoglycemic drugs
CPT/HCPCS: 76870; A9270; J1885

== ENCOUNTER 2023-06-14 19:51 | Inpatient (IN) | payer OTHER ==
[~2023-06-14] VITALS: Ht 182.9 cm; Wt 106.8 kg
[~2023-06-14 19:51] MED LIST changes: +LEVFLO500 PO
[2023-06-14 21:43] LABS: BASOPHILS ABSOLUTE AUTO 0.07 K/mm3 (0.00-0.23); BASOPHILS PERCENT AUTO 1 % (0-2); EOSINOPHILS ABSOLUTE AUTO 0.16 K/mm3 (0.00-0.68); EOSINOPHILS PERCENT AUTO 2 % (0-6); Hematocrit 46.3 % (37.0-53.0); Hemoglobin 15.8 g/dL (13.5-17.5); IMMATURE GRAN ABSOLUTE AUTO 0.04 K/mm3 (0.00-0.10); IMMATURE GRAN PERCENT AUTO 0 % (0-1); LYMPHOCYTES ABSOLUTE AUTO 1.92 K/mm3 (0.84-5.20); LYMPHOCYTES PERCENT AUTO 18 % (21-46); MONOCYTES ABSOLUTE AUTO 0.84 K/mm3 (0.16-1.47); MONOCYTES PERCENT AUTO 8 % (4-13); Mean Corpuscular HGB 27.5 pg (26.0-34.0); Mean Corpuscular HGB Conc 34.1 g/dL (31.5-36.5); Mean Corpuscular Volume 81 fL (80-100); Mean Platelet Volume 10.5 fL (9.1-12.4); NEUTROPHILS ABSOLUTE AUTO 7.44 K/mm3 (1.96-9.15); NEUTROPHILS PERCENT AUTO 71 % (41-73); Platelet Count 210 K/mm3 (150-400); RDW Coefficient Variation 13.1 % (11.7-14.2); RDW Standard Deviation 37.6 fL (35.1-46.3); Red Blood Cell Count 5.75 M/mm3 (4.30-5.90); White Blood Cell Count 10.47 K/mm3 (4.00-11.30)
[2023-06-14 21:56] LABS: International Normalized Ratio 0.99; Prothrombin Time Results 10.4 Sec (9.7-11.5)
[2023-06-14 22:01] LABS: Albumin, Blood 3.8 g/dL (3.4-5.0); Albumin/Globulin Ratio 1.1 (0.8-1.8); Bilirubin, Total 0.5 mg/dL (0.1-1.0); Bun/Creatinine Ratio 15.3 (12.0-20.0); Calcium, Blood 8.7 mg/dL (8.5-10.1); Creatinine, Blood 0.85 mg/dL (0.60-1.20); Globulin, Blood 3.6 g/dL (2.2-4.0); Potassium, Blood 4.1 mmol/L (3.5-5.5); Total Protein, Blood 7.4 g/dL (6.4-8.2)
[2023-06-14] MEDS ORDERED: BUSP5 PO (23:22)
[2023-06-14] MEDS ORDERED: NITR100CA PO (23:22)
[2023-06-14] MEDS ORDERED: CITALOPRAM HBR10 MG PO (23:23)
[2023-06-14] MEDS ORDERED: HYDACE10B PO (23:35)
[2023-06-14] MEDS ORDERED: REPATHA SU140 MG/1 M SQ (23:39)
[2023-06-15 02:26] VITALS: BP 171/85
--- NOTE | 2023-06-15 06:45 | NUR ---
PT ARRIVED ON FLOOR EARLIER THIS AM AND WAS IN SIGNIFICANT PAIN AFTER TRANSFERRING TO THE UNIT BED. LYLY GREY GAVE PAIN MEDS AND THIS RN GOT SOME PO PAIN MEDS ORDERED FROM DR. WYATT. PT REPORTED FEELING NAUSEOUS AND THIS RN GAVE ZOFRAN AND ANOTHER DOSE OF DILAUDID. PT REPORTS RELIEF WITH MEDICATION INTERVENTIONS. PT/OT ALSO ORDERED D/T PATIENT'S PAIN AND NEED FOR ADL ASSISTANCE.
[2023-06-15 07:11] LABS: BASOPHILS ABSOLUTE AUTO 0.05 K/mm3 (0.00-0.23); BASOPHILS PERCENT AUTO 1 % (0-2); EOSINOPHILS ABSOLUTE AUTO 0.06 K/mm3 (0.00-0.68); EOSINOPHILS PERCENT AUTO 1 % (0-6); Hematocrit 46.7 % (37.0-53.0); Hemoglobin 15.9 g/dL (13.5-17.5); IMMATURE GRAN ABSOLUTE AUTO 0.03 K/mm3 (0.00-0.10); IMMATURE GRAN PERCENT AUTO 0 % (0-1); LYMPHOCYTES ABSOLUTE AUTO 1.88 K/mm3 (0.84-5.20); LYMPHOCYTES PERCENT AUTO 18 % (21-46); MONOCYTES ABSOLUTE AUTO 1.18 K/mm3 (0.16-1.47); MONOCYTES PERCENT AUTO 11 % (4-13); Mean Corpuscular HGB 27.4 pg (26.0-34.0); Mean Corpuscular Volume 80 fL (80-100); Mean Platelet Volume 10.1 fL (9.1-12.4); NEUTROPHILS ABSOLUTE AUTO 7.55 K/mm3 (1.96-9.15); NEUTROPHILS PERCENT AUTO 70 % (41-73); Platelet Count 208 K/mm3 (150-400); RDW Coefficient Variation 13.2 % (11.7-14.2); RDW Standard Deviation 37.5 fL (35.1-46.3); Red Blood Cell Count 5.81 M/mm3 (4.30-5.90); White Blood Cell Count 10.75 K/mm3 (4.00-11.30)
[2023-06-15 07:21] VITALS: BP 147/88
[2023-06-15 07:34] LABS: Albumin/Globulin Ratio 1.1 (0.8-1.8); Bilirubin, Total 0.7 mg/dL (0.1-1.0); Bun/Creatinine Ratio 14.5 (12.0-20.0); Calcium, Blood 9.2 mg/dL (8.5-10.1); Creatinine, Blood 0.76 mg/dL (0.60-1.20); Globulin, Blood 3.7 g/dL (2.2-4.0); Potassium, Blood 3.8 mmol/L (3.5-5.5); Total Protein, Blood 7.7 g/dL (6.4-8.2)
--- NOTE | 2023-06-15 07:40 | NUR ---
RECVED REPORT FROM PREVIOUS SHIFT RN. PT SITTING UP IN BED, A/O X 4, PLEASANT/COOPERATIVE, GRIMACES WITH MOVEMENT AND RATES PAIN AT 9/10. PROVIDED ANALGESIA PER MAR, PO INTAKE TOLERATED, CALL LIGHT WITHIN REACH, BED RAILS UP X 2, BED IN LOWESTE POSITION
[2023-06-15 15:01] VITALS: BP 128/73
[2023-06-15 19:29] VITALS: BP 114/70
[2023-06-16 03:43] VITALS: BP 124/78
--- NOTE | 2023-06-16 06:13 | NUR ---
NO ACUTE EVENTS OVERNIGHT. VSS. PT MEDICATED FOR PAIN FOR HIS LEFT SIDE BROKEN RIBS PER EMAR.
[2023-06-16 07:48] VITALS: BP 127/82
[2023-06-16 14:30] VITALS: BP 120/72
[2023-06-16 19:34] VITALS: BP 145/89
--- NOTE | 2023-06-16 20:01 | NUR ---
PT HAS BEEN IMPROVING THIS SHIFT. PT REMAINS ON 2L O2. USING SPIROMETRY APPROPRIATELY. PT ABLE TO DANGLE AND STAND WITH SBA. TOLERATING DIET. BLOOD SUGARS STABLE AND TREATED PER EMAR. VOIDING WELL WITH URINAL. NO BM THIS SHIFT. PAIN MANAGED WITH PERCOCET. USES CALL LIGHT APPROPRIATELY NEEDED.
[2023-06-17 04:03] VITALS: BP 135/81
[2023-06-17 04:24] LABS: Albumin, Blood 3.5 g/dL (3.4-5.0); Albumin/Globulin Ratio 0.8 (0.8-1.8); Bilirubin, Total 0.8 mg/dL (0.1-1.0); Bun/Creatinine Ratio 26.4 (12.0-20.0); Calcium, Blood 9.7 mg/dL (8.5-10.1); Creatinine, Blood 0.87 mg/dL (0.60-1.20); Globulin, Blood 4.4 g/dL (2.2-4.0); Potassium, Blood 4.2 mmol/L (3.5-5.5); Total Protein, Blood 7.9 g/dL (6.4-8.2)
--- NOTE | 2023-06-17 05:38 | NUR ---
SHIFT SUMMARY SATURDAY ADMIT FOR L RIB FX #4-8 R/T FALL OUT OF [facility] DOORWAY. PT CONTINUES TO REPORT 6-8/10 PAIN T/O NIGHT, RECIEVED PERCO 7.5MG 2X AND BREAKTHOUGH DILAUDID 1MG 2X THIS SHIFT. LUNGS CLEAR, DIMINISHED T/O W/ SHALLOW BREATHS, PT REMAINS ON 4L O2 VIA NC W/ CONTINUED BIOX AT 93-94% T/O NIGHT. USE OF IS SEVERAL TIMES NOTED. PT A&OX4 W/ GREAT PERSONALITY, VSS W/ HX OF 12 HEART STENTS, CAD, AND HTN. PT REPORTS PAIN LEVEL BETTER THAN ADMIT DAY. NO ACUTE CHANGES THIS SHIFT, PT AWAKE MAJORITY OF NIGHT. CALL LIGHT W/IN REACH.
[2023-06-17 07:50] VITALS: BP 141/88
[2023-06-17 15:39] VITALS: BP 151/92
--- NOTE | 2023-06-17 16:24 | NUR ---
SHIFT SUMMARY PAIN MANAGED WITH PO PAIN MEDICATION THIS SHIFT. IV DILAUDID GIVEN X1 SO PT COULD WORK WITH THERAPY. PT IS A SBA WHEN OOB. INCENTIVE SPIROMETER AT BEDSIDE AND PT HAS DEMONSTRATED USE. PT REMAINS ON 2L O2 VIA NC. PT TOLERATING PO. CALL LIGHT WITHIN REACH.
[2023-06-17 19:36] VITALS: BP 156/93
[2023-06-18 03:50] VITALS: BP 137/87
--- NOTE | 2023-06-18 06:03 | NUR ---
SHIFT SUMMARY PATIENT ALERT AND ORIENTED x4, ABLE TO MAKE NEEDS KNOWN TO STAFF. BP STABLE, PATIENT ON 2L NC DURING THE NIGHT WITH SPO2 >92%, SHALLOW BREATHING DURING THE NIGHT. ENCOURAGED INCENTIVE SPIROMETER USE. MEDICATED PER EMAR FOR PAIN. TOLERATING PO. USING URINAL INDEPENDENTLY. NO OTHER CHANGES, WILL REPORT TO DAY SHIFT RN.
[2023-06-18 07:15] VITALS: BP 123/86
--- NOTE | 2023-06-18 08:19 | NUR ---
PT OFFERED ASSISTANCE AND ENCOURAGED TO GET OOB TO THE CHAIR FOR BREAKFAST. PT DECLINED AT THIS TIME. PT WAS PROVIDED WITH PAIN MEDICATION TO ASSIST WITH IMPROVED MOBILITY TOLERANCE.
[2023-06-18] MEDS ORDERED: DOCU100 PO (13:29)
[2023-06-18] MEDS ORDERED: OXYACE7.5T PO (13:32)
[2023-06-18] MEDS ORDERED: MIRALAX17 GM PO (13:34)
[2023-06-18] MEDS ORDERED: TIZA4 PO (13:37)
[2023-06-18 14:58] VITALS: BP 157/89
[2023-06-18 16:48] VITALS: BP 128/95
--- NOTE | 2023-06-18 17:13 | NUR ---
DISCHARGE PT WAS PROVIDED WITH WRITTEN AND VERBAL DISCHARGE INSTRUCTIONS; PT AND HIS SPOUSE REPORTED UNDERSTANDING. PT STATED PAIN MANAGED AT TIME OF DISCHARGE. VSS PRIOR TO DISCHARGE. PT PLACED ON 3L O2 VIA NC WITH TRANSPORT TANK FOR TRANSPORT HOME. PT STRONGLY ENCOURAGED TO USE INCENTIVE SPIROMETER AT HOME. PT ASSISTED OUT IN W/C AT APPROXIMATELY 1707.
== END 2023-06-18 17:13 | disposition home or self-care (01) | DRG 183 ==
LOC: ER 19:51 → SURS 19:52
PROVIDERS: Internal Medicine; Student in an Organized Health Care Education/Training Program; ADMIT Surgery
DX: S22.42XA Multiple fractures of ribs, left side, initial encounter for closed fracture (principal); J96.01 Acute respiratory failure with hypoxia; G47.33 Obstructive sleep apnea (adult) (pediatric); R74.01 Elevation of levels of liver transaminase levels; E11.40 Type 2 diabetes mellitus with diabetic neuropathy, unspecified; K21.9 Gastro-esophageal reflux disease without esophagitis; I25.10 Atherosclerotic heart disease of native coronary artery without angina pectoris; W17.89XA Other fall from one level to another, initial encounter; S50.312A Abrasion of left elbow, initial encounter; S80.212A Abrasion, left knee, initial encounter; S40.212A Abrasion of left shoulder, initial encounter; Z95.5 Presence of coronary angioplasty implant and graft; E86.0 Dehydration; E78.5 Hyperlipidemia, unspecified; I10 Essential (primary) hypertension; Z88.8 Allergy status to other drugs, medicaments and biological substances; Z79.4 Long term (current) use of insulin; Z79.82 Long term (current) use of aspirin; Z79.891 Long term (current) use of opiate analgesic; Z79.899 Other long term (current) drug therapy; Z79.02 Long term (current) use of antithrombotics/antiplatelets; Z79.84 Long term (current) use of oral hypoglycemic drugs; Z95.1 Presence of aortocoronary bypass graft; Z90.49 Acquired absence of other specified parts of digestive tract; Z98.890 Other specified postprocedural states; Z99.81 Dependence on supplemental oxygen
CPT/HCPCS: 36415; 70450; 71046; 71260; 72125; 73030; 73502; 73560-LT; 74177; 80053; 82947; 85025; 85610; 90471; 90715; 93005; 93010; 94760; 96374-59; 96375; 96376; 96376-59; 97110; 97116; 97161; 97165; 97530; 97535; 99285-25; A9270; C9113; G0378; J1170; J1815; J2405; J3010; J7030; Q9967

== ENCOUNTER 2024-08-06 06:32 | Day surgery (SDC) | payer OTHER ==
[~2024-08-06] VITALS: Ht 182.9 cm; Wt 101.8 kg
[~2024-08-06 06:32] MED LIST changes: +BUSP5 PO; +Balanced Salt Epinephrine Irrigation Solution 500 mL IR SCH; +CITALOPRAM HBR10 MG PO; +DOCU100 PO; +Lidocaine HCl/Pf 1% 5 ML VIAL XX SCH; +MIRALAX17 GM PO; +Moxifloxacin HCL 0.5 MG/0.1 ML 0.4MLSYR RIGHTEYE SCH; +NITR100CA PO; +PHENYLEPHRINE\\TROPICAMIDE\\TETRACAINE OPHTHALMIC DILATING SOLN RIGHTEYE PRN; +Povidone-Iodine 450 DROP/30 ML Solution ONE; +Povidone-Iodine 450 DROP/30 ML Solution RIGHTEYE SCH; +TIZA4 PO; +Tetracaine HCl/Pf 0.5% Opth Soln 4 ml ONE; +Triamcinolone Inj Susp 40 MG / ML 1ML Vial INJ SCH
[2024-08-06] MEDS ORDERED: Lidocaine HCl/Pf 1% 5 ML VIAL ONE (06:39)
[2024-08-06] MEDS ORDERED: Triamcinolone Inj Susp 40 MG / ML 1ML Vial ONE (06:39)
[2024-08-06] MEDS ORDERED: Diazepam 2 MG Tab ONE (06:54)
[2024-08-06] MEDS ORDERED: METO100ER PO (06:59)
[2024-08-06] MEDS ORDERED: NS 500 ML IV ONE ×2 (07:10→08:14)
--- NOTE | 2024-08-06 07:10 | NUR ---
08/06/24 0710 Deejay Valadez, PT ASKED WHAT HIS ANXIETY SCORE IS AND HE STATED /10. VALIUM 2MG GIVEN PER STANDARD ORDER OF DR GARCIA. PT ALSO CBG WAS 41 ASYMPTOMATIC. NS500 GIVEN AFTER 1 AMP OF D50 GIVEN PER DR PAL. WCTM.
[2024-08-06] MEDS ORDERED: Midazolam HCl 1MG / ML 2ML Vial ONE (07:42)
[2024-08-06 08:27] VITALS: BP 140/84
--- NOTE | 2024-08-06 08:49 | NUR ---
08/06/24 0849 GALA KING INSTRUCTED PATIENT TO EAT 8 HOURS PRIOR TO ADMIT TIME AND CLEAR LIQUIDS UNTIL 2 HOURS PRIOR TO PROCEDURE PT CAME IN WITH A BLOOD SUGAR OF 48 TODAY. PRIOR TO SURGERY STAFF WAS ABLE TO GET HIS BG UP TO 213. IN SDU, HIS BG WAS 105. PT AND BOTH INSTRUCTED ON THIS WELL A NOTE WAS GIVEN IN PT INFO/DC INSTRUCTIONS
[2024-08-06] MEDS ORDERED: Dextrose 50% 50 ML Syringe IV ONE (08:57)
== END 2024-08-06 08:49 | disposition home or self-care (01) ==
LOC: ORSCSDS 06:32
PROVIDERS: Ophthalmology
PROC: 08RJ3JZ Replacement of Right Lens with Synthetic Substitute, Percutaneous Approach (ICD-10-PCS; principal; 2024-08-06 08:00)
DX: E11.36 Type 2 diabetes mellitus with diabetic cataract (principal); H25.811 Combined forms of age-related cataract, right eye; I10 Essential (primary) hypertension; E78.5 Hyperlipidemia, unspecified; I25.2 Old myocardial infarction; G47.33 Obstructive sleep apnea (adult) (pediatric); I25.810 Atherosclerosis of coronary artery bypass graft(s) without angina pectoris; K21.9 Gastro-esophageal reflux disease without esophagitis; Z79.82 Long term (current) use of aspirin; Z79.84 Long term (current) use of oral hypoglycemic drugs; Z79.4 Long term (current) use of insulin; Z79.899 Other long term (current) drug therapy; Z79.02 Long term (current) use of antithrombotics/antiplatelets
CPT/HCPCS: 82947; A9270; J2003; J2250; J3301; J7040; V2632

== ENCOUNTER 2024-08-13 06:17 | Day surgery (SDC) | payer OTHER ==
[~2024-08-13] VITALS: Ht 182.9 cm; Wt 99.7 kg
[~2024-08-13 06:17] MED LIST changes: +Moxifloxacin HCL 0.5 MG/0.1 ML 0.4MLSYR LEFTEYE SCH; -Moxifloxacin HCL 0.5 MG/0.1 ML 0.4MLSYR RIGHTEYE SCH; +PHENYLEPHRINE\\TROPICAMIDE\\TETRACAINE OPHTHALMIC DILATING SOLN LEFTEYE PRN; -PHENYLEPHRINE\\TROPICAMIDE\\TETRACAINE OPHTHALMIC DILATING SOLN RIGHTEYE PRN; +Povidone-Iodine 450 DROP/30 ML Solution LEFTEYE SCH; -Povidone-Iodine 450 DROP/30 ML Solution RIGHTEYE SCH
[2024-08-13] MEDS ORDERED: Lidocaine HCl/Pf 1% 5 ML VIAL ONE (06:39)
[2024-08-13] MEDS ORDERED: Triamcinolone Inj Susp 40 MG / ML 1ML Vial ONE (06:39)
[2024-08-13] MEDS ORDERED: Diazepam 5 MG Tab ONE (06:42)
[2024-08-13] MEDS ORDERED: PREG150 PO (07:09)
[2024-08-13] MEDS ORDERED: HYDROCODONE-AC1 EAC7 PO (07:11)
[2024-08-13] MEDS ORDERED: ISOSORBIDE MONO30 MG PO (07:12)
[2024-08-13] MEDS ORDERED: SEMGLEE (Y100 UNIT/2 SC (07:13)
--- NOTE | 2024-08-13 07:20 | NUR ---
08/13/24 0720 Liudmila Guardado 0655: UPON ARRIVAL TO PRE-OP ROOM PT REPORTED ANXIETY LEVEL OF 12/03 0702: GIVEN 5 MG PO VALIUM PER ORDERS 0718: PER PATIENT ANXIETY LEVEL HAS IMPROVED AND IS A /10
[2024-08-13] MEDS ORDERED: Diazepam 2 MG Tab ONE (07:23)
[2024-08-13] MEDS ORDERED: Tetracaine HCl 0.5% Opth Soln 15 ml LEFTEYE ONE (07:54)
[2024-08-13 08:17] VITALS: BP 121/83
[2024-08-13] MEDS ORDERED: Ondansetron HCl 2 MG / ML 2ML Vial ONE (08:47)
== END 2024-08-13 08:28 | disposition home or self-care (01) ==
LOC: ORSCSDS 06:17
PROVIDERS: Ophthalmology
PROC: 08RK3JZ Replacement of Left Lens with Synthetic Substitute, Percutaneous Approach (ICD-10-PCS; principal; 2024-08-13 08:00)
DX: E11.36 Type 2 diabetes mellitus with diabetic cataract (principal); H25.812 Combined forms of age-related cataract, left eye; H53.022 Refractive amblyopia, left eye; Z96.1 Presence of intraocular lens; I25.10 Atherosclerotic heart disease of native coronary artery without angina pectoris; I10 Essential (primary) hypertension; E78.5 Hyperlipidemia, unspecified; I25.2 Old myocardial infarction; G47.33 Obstructive sleep apnea (adult) (pediatric); K21.9 Gastro-esophageal reflux disease without esophagitis; Z79.82 Long term (current) use of aspirin; Z79.02 Long term (current) use of antithrombotics/antiplatelets; Z79.84 Long term (current) use of oral hypoglycemic drugs; Z79.4 Long term (current) use of insulin; Z79.899 Other long term (current) drug therapy; Z87.891 Personal history of nicotine dependence
CPT/HCPCS: 82947; A9270; J2003; J2405; J3301; V2632

== ENCOUNTER 2024-09-17 19:42 | Emergency (ER) | payer OTHER ==
[~2024-09-17] VITALS: Ht 177.8 cm; Wt 113.4 kg
[~2024-09-17 19:42] MED LIST changes: -Balanced Salt Epinephrine Irrigation Solution 500 mL IR SCH; +HYDROCODONE-AC1 EAC7 PO; +ISOSORBIDE MONO30 MG PO; -Lidocaine HCl/Pf 1% 5 ML VIAL XX SCH; -Moxifloxacin HCL 0.5 MG/0.1 ML 0.4MLSYR LEFTEYE SCH; -PHENYLEPHRINE\\TROPICAMIDE\\TETRACAINE OPHTHALMIC DILATING SOLN LEFTEYE PRN; +PREG150 PO; -Povidone-Iodine 450 DROP/30 ML Solution LEFTEYE SCH; -Povidone-Iodine 450 DROP/30 ML Solution ONE; +SEMGLEE (Y100 UNIT/2 SC; -Tetracaine HCl/Pf 0.5% Opth Soln 4 ml ONE; -Triamcinolone Inj Susp 40 MG / ML 1ML Vial INJ SCH
[2024-09-17 20:09] VITALS: BP 128/79
[2024-09-17] MEDS ORDERED: Acetaminophen 500 MG Tab PO ONE (22:05)
== END 2024-09-17 22:35 | disposition home or self-care (01) ==
LOC: ER 19:42
DX: S39.012A Strain of muscle, fascia and tendon of lower back, initial encounter (principal); S93.602A Unspecified sprain of left foot, initial encounter; S40.012A Contusion of left shoulder, initial encounter; I10 Essential (primary) hypertension; I25.10 Atherosclerotic heart disease of native coronary artery without angina pectoris; E11.40 Type 2 diabetes mellitus with diabetic neuropathy, unspecified; E78.5 Hyperlipidemia, unspecified; K21.9 Gastro-esophageal reflux disease without esophagitis; Z95.1 Presence of aortocoronary bypass graft; Z87.891 Personal history of nicotine dependence; Z88.8 Allergy status to other drugs, medicaments and biological substances; Z79.02 Long term (current) use of antithrombotics/antiplatelets; Z79.4 Long term (current) use of insulin; Z79.82 Long term (current) use of aspirin; Z79.899 Other long term (current) drug therapy; W01.0XXA Fall on same level from slipping, tripping and stumbling without subsequent striking against object, initial encounter
CPT/HCPCS: 73630; 99284-25; A9270

== ENCOUNTER 2025-06-10 13:11 | Day surgery (SDC) | payer OTHER ==
[~2025-06-10] VITALS: Ht 177.8 cm; Wt 98.5 kg
[~2025-06-10 13:11] MED LIST changes: +ACET500 PO; +Co Q-1030 MG PO; +FERSU300 PO; +FISH OIL 1,0001 EA10 PO; +IBUP200 PO; -ISOSORBIDE MONO30 MG PO; +ISOSORBIDE MONO60 MG PO; +JARDIANCE25 MG PO; +K-Dur10 MEQ PO; +MULTI-VITAMIN1 EAC2 PO
--- NOTE | 2025-06-10 13:52 | NUR ---
Patient states colon prep results clear. Patient States Post-Procedure ride home has been arranged. Patient confirms NPO status and agrees with scheduled surgery. Lungs clear T/O to Auscultation.
--- NOTE | 2025-06-10 13:52 | NUR ---
06/10/25 1352 Alyssa Coon History, Chart, Medications and Allergies reviewed before start of procedure. MONITOR INTACT WITH CONTINUOUS PULSE OXIMETRY, CONTINUOUS END TITAL CO2, 3-LEAD EKG AND INTERMITTENT BLOOD PRESSURE. O2 VIA POM INTACT THROUGHOUT SEDATION/PROCEDURE. DR. KAYLYNN SPEAR ANESTHESIA CARE, SEE ANESTHESIA RECORD.
[2025-06-10 14:30] VITALS: BP 95/64
[2025-06-10 14:44] VITALS: BP 109/65
--- NOTE | 2025-06-10 14:58 | NUR ---
Patient up to Ambulate independently. Gait steady. Discharge instructions reviewed with patient. Patient verbalizes understanding. Copy given to patient to take home, WELL FAMILY. Patient States Post-Procedure ride home has been arranged. Discharged via wheelchair to private car for ride home. PT TOLERATING PO, REPORTS READY TO GO HOME. FAMILY RECENTLY TO BEDSIDE.
== END 2025-06-10 14:58 | disposition home or self-care (01) ==
LOC: ORSCMMR 13:11 → ORD 13:45 → ORSCMMR 14:58
PROVIDERS: Surgery
PROC: 0DJD8ZZ Inspection of Lower Intestinal Tract, Via Natural or Artificial Opening Endoscopic (ICD-10-PCS; principal; 2025-06-10 13:45)
DX: Z12.11 Encounter for screening for malignant neoplasm of colon (principal); Z86.0100 Personal history of colon polyps, unspecified; K57.30 Diverticulosis of large intestine without perforation or abscess without bleeding; K64.1 Second degree hemorrhoids; I10 Essential (primary) hypertension; G47.33 Obstructive sleep apnea (adult) (pediatric); E11.9 Type 2 diabetes mellitus without complications; K21.9 Gastro-esophageal reflux disease without esophagitis; I25.2 Old myocardial infarction; K40.90 Unilateral inguinal hernia, without obstruction or gangrene, not specified as recurrent; Z79.899 Other long term (current) drug therapy; Z79.02 Long term (current) use of antithrombotics/antiplatelets; Z79.84 Long term (current) use of oral hypoglycemic drugs; Z79.85 Long-term (current) use of injectable non-insulin antidiabetic drugs; Z87.891 Personal history of nicotine dependence
CPT/HCPCS: 82947; J2704; J7120

== ENCOUNTER 2025-06-22 11:04 | Day surgery (SDC) | payer OTHER ==
[~2025-06-22] VITALS: Ht 182.9 cm; Wt 97.3 kg
[2025-06-22] VITALS (15 sets, daily range): BP systolic 96–167; BP diastolic 68–101
[~2025-06-22 11:04] MED LIST changes: +Bupivacaine 0.5% HCl 5 MG/ML 30MLVIAL ONE; +Bupivacaine 0.5% W/EPI 1:200000 SDV 30 ML Vial ONE; +CeFAZolin Sodium 2,000 MG in NS 100 ML IV SCH
--- NOTE | 2025-06-22 12:00 | NUR ---
AMBULATORY INTO [facility] UTILIZING CANE. PT REPORTS 5/10 GENERALIZED PAIN. PT STATES THAT HE HAS HAD MULTIPLE NECK AND BACK SURGERIES AND THAT HE HAS CHRONIC PAIN. HISTORY AND ALLERGIES REVIEWED. LUNGS CLEAR-SATS>90% ON RA. SBP 90'S. HR 50'S-60'S. NPO STATUS CONFIRMED. PT HAS SCRATCHES T/O HIS BODY FROM HIS CATS. SEVERAL SCRATECHES NOTED TO ABDOMEN PRIOR TO SHAVE PREP. HOWEVER, DURING SHAVE PREP, THE ABDOMEN IS COVERED WITH STRETCH SERNA AND SEVERAL ADDITIONAL NICKS/ABRASIONS OCCURED. PT DAYNE IS HIS RIDE HOME TODAY. PT GLASSES GIVEN TO HER. PT CANE AND CLOTHING BELOW SAMANTHA.
[2025-06-22] MEDS ORDERED: Rocuronium Bromide 10 MG/ML 5ML Injection IV ONE (12:16)
[2025-06-22] MEDS ORDERED: FentaNYL Citrate 50 MCG/ML 2 ML Injection ONE ×2 (12:16→14:44)
[2025-06-22] MEDS ORDERED: Ondansetron HCl 2 MG / ML 2ML Vial ONE (12:39)
[2025-06-22] MEDS ORDERED: Dexamethasone Sod Phos 10 MG/ML 1ML VIAL ONE (12:39)
[2025-06-22] MEDS ORDERED: ePHEDrine Sulfate 50 MG/ML 1ML Injection ONE (12:43)
--- NOTE | 2025-06-22 13:18 | NUR ---
06/22/25 1318 Gilma Nichols WHEN PREPPING PATIENT'S ABDOMEN WITH CHLORAPREP CIRCULATING RN AND ELECTRICIAN JOURNEYMAN WIREMAN NOTED RAISED, REDDENED ABRASIONS ON ABDOMEN AND IN GROIN WHERE PATIENT WAS SHAVED IN THE PREOPERATIVE SETTING. AWARE.
[2025-06-22] MEDS ORDERED: Sugammadex Sodium 200 MG/2ML SDV (100 MG/ML) ONE (14:03)
[2025-06-22] MEDS ORDERED: HYDROmorphone HCl/Pf 1MG SYR IV PRN ×2 (14:30)
[2025-06-22] MEDS ORDERED: FentaNYL Citrate 50 MCG/ML 2 ML Injection IV PRN (14:35)
[2025-06-22] MEDS ORDERED: OxyCODONE 5 mg/Acetamin 325 mg TABLET PO PRN (14:35)
[2025-06-22] MEDS ORDERED: Metoclopramide HCl 5MG / ML 2ML Vial IV PRN (14:35)
[2025-06-22] MEDS ORDERED: Ketorolac Tromethamine 30mg Vial IV PRN (14:40)
[2025-06-22] MEDS ORDERED: Ketorolac Tromethamine 30mg Vial ONE (14:43)
--- NOTE | 2025-06-22 15:10 | NUR ---
Report received from Maryann HAMILTON. VSS. Pt on RA. Pt A&OX4. Pt able to reposition self in bed. Pt requesting PO fluids and donte them well. Pt reports 3/10 donte pain to abd. Pt denies nausea or other discomforts. Pt has 3 surg sites covered with Dermabond that are CDI. Pt has scattered abrasions from shave prep, unchanged from preop.
--- NOTE | 2025-06-22 16:17 | NUR ---
Patient up to Ambulate with personal cane. Gait consistent with pt baseline. VSS and consistent with pt baseline. Pt verbalizes readiness to go home. Discharge instructions reviewed with patient. Patient verbalizes understanding. Copy given to patient to take home. Dressing to procedure site clean, dry, intact with no visible drainage, swelling, erythema or bruising noted. Scattered abrasions from shave prep remains same condition. Patient States Post-Procedure ride home has been arranged. Discharged via wheelchair to private car for ride home. Pt belongings returned to pt.
== END 2025-06-22 16:15 | disposition home or self-care (01) ==
LOC: ORSCMMR 11:04 → ORD 12:30 → ORSCMMR 16:15
PROVIDERS: Surgery
PROC: 0YU54JZ Supplement Right Inguinal Region with Synthetic Substitute, Percutaneous Endoscopic Approach (ICD-10-PCS; principal; 2025-06-22 12:30)
PROC: 8E0W4CZ Robotic Assisted Procedure of Trunk Region, Percutaneous Endoscopic Approach (ICD-10-PCS; principal; 2025-06-22 12:30)
PROC: 3E0T3BZ Introduction of Anesthetic Agent into Peripheral Nerves and Plexi, Percutaneous Approach (ICD-10-PCS; principal; 2025-06-22 12:30)
DX: K40.30 Unilateral inguinal hernia, with obstruction, without gangrene, not specified as recurrent (principal); I10 Essential (primary) hypertension; I25.10 Atherosclerotic heart disease of native coronary artery without angina pectoris; G47.33 Obstructive sleep apnea (adult) (pediatric); E11.9 Type 2 diabetes mellitus without complications; I25.2 Old myocardial infarction; E78.5 Hyperlipidemia, unspecified; Z79.02 Long term (current) use of antithrombotics/antiplatelets; Z79.899 Other long term (current) drug therapy; Z79.82 Long term (current) use of aspirin; Z79.84 Long term (current) use of oral hypoglycemic drugs; Z79.4 Long term (current) use of insulin; Z87.891 Personal history of nicotine dependence
CPT/HCPCS: 82947; A9270; C1781; J0690; J1100; J1885; J2405; J2704; J3010; J7120